=== PATIENT | female | born 1975 | race Caucasian/White ===

== ENCOUNTER 2016-08-23 16:14 | Emergency (ER) | payer BC ==
[2016-08-23 16:50] VITALS: BP 114/68
--- NOTE | 2016-08-23 17:23 | ED ---
Lower Extremity - HPI Summary HPI Summary: 41 yr old female with the complaint of right foot pain. Onset of pain 10 days ago. She got out of bed in middle of night and thinks she twisted her foot and ankle right. She complains of pain with bearing weight. She complains of pain over the lateral foot. She has no other complaints. She denies swelling, bruising, fever or chills. She states she delayed coming for so long because she had to take care of her ill mother. - History of Current Complaint Chief Complaint: UCLowerExtremity Stated Complaint: RT FOOT INJURY Time Seen by Provider: 08/23/16 17:11 Hx Last Menstrual Period: age 38 - Allergies/Home Medications Allergies/Adverse Reactions: Allergies Allergy/AdvReac Type Severity Reaction Status Date / Time Aspirin Allergy Intermediate nose bleeds Verified 08/23/16 16:50 Home Medications: Home Medications DULoxetine DR CAP* [Cymbalta CAP*] 20 mg PO DAILY 08/23/16 [History Confirmed ] Loratadine [Claritin 10 MG CAP] 10 mg PO DAILY 08/23/16 [History Confirmed 08/23] PMH/Surg Hx/FS Hx/Imm Hx Cardiovascular History: Reports: Hx Hypertension - Surgical History Surgery Procedure, Year, and Place: right carpal tunnel 2008 Infectious Disease History: No Infectious Disease History: Denies: Traveled Outside the [place] in Last 30 Days - Family History Known Family History: Negative: Diabetes - Social History Alcohol Use: Occasionally Substance Use Type: Reports: None Smoking Status (MU): Former Smoker Review of Systems Constitutional: Negative Positive: Other - right ankle foot pain All Other Systems Reviewed And Are Negative: Yes Physical Exam Triage Information Reviewed: Yes Vital Signs On Initial Exam: Initial Vitals Temp Pulse Resp BP 99.4 F 95 18 114/68 08/23/16 16:42 08/23/16 16:42 08/23/16 16:42 08/23/16 16:42 Vital Signs Reviewed: Yes Appearance: Positive: Well-Appearing, No Pain Distress Skin: Positive: Warm Head/Face: Positive: Normal Head/Face Inspection Eyes: Positive: Normal, EOMI ENT: Positive: Normal ENT inspection Respiratory/Lung Sounds: Positive: Clear to Auscultation, Breath Sounds Present Cardiovascular: Positive: Normal, RRR. Negative: Murmur Abdomen Description: Positive: Nontender Musculoskeletal: Positive: Other - tender over the lateral right foot and over the anterior talo fibular ligament. no soft tissue swelling, no redness, no bruises, no effusion. Intact DP/PT pulse. Neuro vasc intact Neurological: Positive: Normal, Sensory/Motor Intact, Alert, Oriented to Person Place, Time, CN Intact II-III Psychiatric: Positive: Normal - Peterson Coma Scale Best Eye Response: 4 - Spontaneous Best Motor Response: 6 - Obeys Commands Best Verbal Response: 5 - Oriented Diagnostics - Vital Signs Vital Signs Temp Pulse Resp BP 08/23/16 16:42 99.4 F 95 18 114/68 - Laboratory Lab Statement: Any lab studies that have been ordered have been reviewed, and results considered in the medical decision making process. Lower Extremity Course/Dx - Course Course Of Treatment: 41 yr old female with right foot sprain. She will wear post op shoe and follow up with orthopedics. - Diagnoses Provider Diagnoses: Foot sprain Discharge - Discharge Plan Condition: Good Disposition: HOME Patient Education Materials: Foot Sprain (ED) Referrals: Ajith Parker DO [Primary Care Provider] - Chelsey Wilson MD [Medical Doctor] -
--- NOTE | 2016-08-23 18:07 | RAD ---
INDICATION: Lateral foot and ankle pain after injury "a few days ago" COMPARISON: None. TECHNIQUE: 3 views of the right foot and 3 views of the right ankle were obtained. FINDINGS: The adequately corticated bones are properly aligned. Joint spaces appear maintained. No fracture, dislocation or focal bony abnormality is seen. IMPRESSION: NO RADIOGRAPHICALLY APPARENT FRACTURE OR DISLOCATION INVOLVING THE RIGHT FOOT OR ANKLE. If the patient's symptoms persist, follow-up imaging is recommended.
== END 2016-08-23 18:36 | disposition home or self-care (01) ==
LOC: UCCORT 16:14
DX: S93.601A Unspecified sprain of right foot, initial encounter (principal); X58.XXXA Exposure to other specified factors, initial encounter; Y93.9 Activity, unspecified; Y92.9 Unspecified place or not applicable; Z88.6 Allergy status to analgesic agent; I10 Essential (primary) hypertension; Z87.891 Personal history of nicotine dependence
CPT/HCPCS: 99212; G0463

== ENCOUNTER 2019-04-02 14:19 | Emergency (ER) | payer BC ==
[2019-04-02 14:54] VITALS: BP 140/89
--- NOTE | 2019-04-02 15:07 | UC ---
Throat Pain/Nasal Silverio HPI - HPI Summary HPI Summary: 43 year old female with no PMH presents with increased throat pain x 12 hours, increased pain with swallowing, minimal at rest. + radiating to left ear with swallowing. no coughing, no SOB. no fever. no other symptoms. - History of Current Complaint Chief Complaint: UCGeneralIllness Stated Complaint: SORE THROAT, LEFT EAR PAIN Time Seen by Provider: 04/02/19 14:48 Hx Obtained From: Patient Hx Last Menstrual Period: age 38 ?: No Onset/Duration: Sudden Onset, Lasting Hours Severity: Severe Pain Intensity: 9 Pain Scale Used: 0-10 Numeric Cough: None Associated Signs & Symptoms: Positive: Dysphagia. Negative: Drooling, Sinus Discomfort, Nasal Discharge, Fever, Vomiting, Rash - Allergies/Home Medications Allergies/Adverse Reactions: Allergies Allergy/AdvReac Type Severity Reaction Status Date / Time aspirin Allergy See Comment Verified 04/02/19 14:47 Home Medications: Home Medications Fenofibrate,Micronized [Fenofibrate] 1 tab PO DAILY 04/02/19 [History Confirmed 04/02/19] PMH/Surg Hx/FS Hx/Imm Hx Previously Healthy: Yes - Surgical History Surgical History: Yes Surgery Procedure, Year, and Place: right carpal tunnel 2008. bilateral cataract 2017 - Family History Known Family History: Positive: Non-Contributory Negative: Diabetes - Social History Alcohol Use: Daily Substance Use Type: None Smoking Status (MU): Light Every Day Tobacco Smoker Amount Used/How Often: 4-5 cigs/day Review of Systems All Other Systems Reviewed And Are Negative: Yes Constitutional: Negative: Fever, Chills, Fatigue ENT: Positive: Sore Throat, Ear Ache. Negative: Nasal Discharge, Sinus Congestion, Sinus Pain/Tenderness Respiratory: Negative: Shortness Of Breath, Cough Neurological: Positive: Negative Is Patient Immunocompromised?: No Physical Exam Triage Information Reviewed: Yes Appearance: No Pain Distress, Well-Nourished, Ill-Appearing - mild Vital Signs: Initial Vital Signs Temp 98.9 F 04/02/19 14:49 Pulse 100 04/02/19 14:49 Resp 18 04/02/19 14:49 BP 140/89 04/02/19 14:49 Pulse Ox 99 04/02/19 14:49 Vital Signs Reviewed: Yes Eyes: Positive: Conjunctiva Clear ENT: Positive: Pharyngeal erythema - left sided., TMs normal - right, TM red - left mild., Tonsillar swelling - left sided, Uvula midline. Negative: Tonsillar exudate, Sinus tenderness Neck: Positive: Supple, Nontender, No Lymphadenopathy. Negative: Nuchal Rigidity, Enlarged Nodes @ Respiratory: Positive: Chest non-tender, Lungs clear, Normal breath sounds, No respiratory distress, No accessory muscle use. Negative: Crackles, Rhonchi, Stridor, Wheezing Cardiovascular: Positive: RRR, No Murmur Psychological Exam: Normal Skin Exam: Normal Throat Pain/Nasal Course/Dx - Course Course Of Treatment: Pharyngitis: - Over the counter medications as needed for symptoms, such as motrin/ TYlenol for pain, fever - Increase fluid intake - Return with increased pain, decreased swallowing, neck stiffness. - Differential Dx/Diagnosis Differential Diagnosis/HQI/PQRI: Laryngitis, Pharyngitis, Tonsillitis Provider Diagnosis: Pharyngitis Discharge ED - Sign-Out/Discharge Documenting (check all that apply): Patient Departure All imaging exams completed and their final reports reviewed: No Studies - Discharge Plan Condition: Good Disposition: HOME Patient Education Materials: Pharyngitis (ED) Referrals: No Primary Care Phys,NOPCP [Primary Care Provider] - Additional Instructions: - Over the counter medications as needed for symptoms, such as motrin/ TYlenol for pain, fever - Increase fluid intake - Return with increased pain, decreased swallowing, neck stiffness. - Billing Disposition and Condition Condition: GOOD Disposition: Home
== END 2019-04-02 15:33 | disposition home or self-care (01) ==
LOC: UCCORT 14:19
DX: J02.9 Acute pharyngitis, unspecified (principal); H92.02 Otalgia, left ear; F17.210 Nicotine dependence, cigarettes, uncomplicated; Z88.6 Allergy status to analgesic agent
CPT/HCPCS: 87651; 99211; G0463